=== PATIENT | male | born 1985 | race African-American/Black ===

== ENCOUNTER 2017-02-16 01:38 | Emergency (ER) | payer SELFPAY ==
[~2017-02-16] VITALS: Ht 182.9 cm; Wt 147.4 kg
--- NOTE | ~2017-02-16 | CT4 ---
[facility] A Service of [facility] RADIOLOGY TEXT RESULTS PATIENT: ALIREZA LIZAMA LOCATION: [facility] : [birth year] UNIT #: [id number] AGE: [address]: ESPINOZA WOLF APRN SEX: M ORDER DR: [id number] [facility]. [place], [place] [address] [id number] MR#: [id number] Acc #: [id number] NAME: ALIREZA LIZAMA : 1985 SEX: M STUDY DATE/TIME: 02/16/2017 3:58 UNIT: AMOR ROOM: STUDY DESCRIPTION: CT Abd and Pelv Wo Cont Attending Physician: Espinoza Wolf Aprn Ordering Physician: Espinoza Wolf Aprn Primary Care Physician: Primary Care Physician No MEDICAL IMAGING REPORT This report is preliminary unless electronic signature is present EXAM CT abdomen and pelvis, noncontrast kidney stone protocol, 02/16/2017 HISTORY 31-year-old male in the ED complaining of 1-day history of left flank pain. Past history of kidney stones. TECHNIQUE CT examination of the abdomen and pelvis, without oral or IV contrast using kidney stone protocol. This CT exam was performed with one or more of the following radiation dose reduction techniques: Automatic exposure control, adjustment of mA and/or kV according to patient size, and iterative reconstruction. COMPARISON CT stone study, 12/12/2015. ABDOMEN FINDINGS There is a 2 mm obstructing stone in the left distal ureter at the UVJ causing mild left hydronephrosis. Tiny, nonobstructing calculus in the upper-pole left kidney measuring 1-2 mm. Kidneys, ureters and bladder are otherwise negative. Liver, pancreas and spleen are normal in size and appearance without contrast. No bile duct dilatation. Small bowel and colon are normal in caliber and appearance, as imaged. The appendix is normal. PELVIS FINDINGS Bladder, prostate and rectum are within normal limits. No inguinal hernia. Lung base images show no active disease in the lower chest. IMPRESSION 1. Obstructing 2 mm calculus in the left distal ureter at the UVJ [facility] A Service of [facility] RADIOLOGY TEXT RESULTS PATIENT: ALIREZA LIZAMA LOCATION: [facility] : [birth year] UNIT #: [id number] AGE: [address]: ESPINOZA WOLF APRN SEX: M ORDER DR: causing mild left hydronephrosis. 2. Small, nonobstructing calculus left mid kidney. 3. The remainder of the examination is negative. Dictated by... Matt Carrillo M.D. THIS IS AN ELECTRONICALLY VERIFIED REPORT Matt Carrillo M.D. at 02/17/2017 2:44 AM REY/martin TD: 02/16/2017 13:20 JOB #: [id number] MEDICAL IMAGING REPORT Page 1 of 1 COPY
[~2017-02-16 01:38] MED LIST: ANUCORT-HC25 MG/SUPP PR; ANUSOL-HC21 GM PR; IBUPROFEN800 MG PO; KETOPROFEN PO; LISINOPRIL10 MG PO; PRINIVIL10 MG PO
[2017-02-16 04:28] LABS: GLOM FILT RATE Estimated 115.7 mL/min (>60); POTASSIUM 3.7 mmol/L (3.5-5.1)
[2017-02-16 05:31] LABS: URINE APPEARANCE CLEAR; URINE BILIRUBIN NEG (NEG); URINE BLOOD NEG (NEG); URINE COLOR YELLOW; URINE GLUCOSE NEG (NEG); URINE KETONE NEG (NEG); URINE LEUKOCYTE ESTERASE 1+ (NEG); URINE NITRATE NEG (NEG); URINE PROTEIN TRACE (NEG); URINE SPECIFIC GRAVITY 1.018 (1.003-1.035)
[2017-02-16 05:33] LABS: CULTURE INDICATED? YES; U HYALINE CASTS AUWI 0-2 /[LPF]; URINE BACTERIA AUWI 1+ (NEGATIVE); URINE SQUAMOUS EPITHELIAL CELL FEW /[HPF]
[2017-02-16 06:17] LABS: BASOPHIL% 0.3 % (0-2.5); DIFF IND YES; EOSINOPHIL# 0.1 X10e3 (0-0.7); EOSINOPHIL% 0.9 % (0.0-7.0); HEMATOCRIT 40.4 % (38.0-50.0); HEMOGLOBIN 13.3 gm/dL (13.0-16.0); LYMPHOCYTE# 4.3 X10e3 (1.0-3.5); LYMPHOCYTE% 55.8 % (17.0-45.0); MEAN CELL VOLUME 80.9 FL (83-96); MEAN CORPUSCULAR HEMOGLOBIN 26.6 PG (28-34); MEAN CORPUSCULAR HGB CONC 32.8 g/dL (30-36); MEAN PLATELET VOLUME 9.4 FL (6.5-11.5); MONOCYTE# 0.7 X10e3 (0-1.0); MONOCYTE% 9.6 % (3.0-12.0); NEUTROPHIL# 2.6 X10e3 (1.5-7.1); NEUTROPHIL% 33.4 % (40-75); PLATELET COUNT 288 X10e3 (140-420); RED BLOOD COUNT 4.99 X10e (3.90-5.60); RED CELL DISTRIBUTION WIDTH 16.5 % (11.0-15.5); WHITE BLOOD COUNT 7.8 X10e3 (4.0-10.5)
[2017-02-16 06:40] LABS: ANISOCYTOSIS SL; PLATELET ESTIMATE NORMAL (NORMAL)
== END 2017-02-16 07:36 | disposition home or self-care (01) ==
LOC: CED 01:38
PROVIDERS: Nurse Practitioner Family
DX: N13.2 Hydronephrosis with renal and ureteral calculous obstruction (principal); I10 Essential (primary) hypertension; Z91.19 Patient's noncompliance with other medical treatment and regimen
CPT/HCPCS: 36415; 74176; 80048; 81003; 85025; 87086; 96361; 96372; 96374; 96375; 99284; J1885; J2270; J2550